=== PATIENT | female | born 1975 | race Two or more races ===

== ENCOUNTER 2019-10-27 21:02 | Emergency (ER) | payer SELFPAY ==
[~2019-10-27] VITALS: Ht 167.6 cm; Wt 91.8 kg
[2019-10-27 21:44] LABS: MICROSCOPIC NOT IND
[2019-10-27 21:53] LABS: CULTURE INDICATED? NO
--- NOTE | 2019-10-27 22:09 | NUR ---
PT C/O RUQ PAIN X1 WEEK. PAIN IS NOW CONSTANT 11/22. FAMILY AT BEDSIDE AT TRANSLATER. PT CONNECTED TO MONITORING. CALL LIGHT IN REACH.
[2019-10-27 22:45] LABS: BASOPHILS # (AUTO) 0.07 x10^3/uL (0-0.1); BASOPHILS % (AUTO) 1 % (0-1); EOSINOPHILS # (AUTO) 0.21 x10^3/uL (0-0.4); EOSINOPHILS % (AUTO) 2 % (1-7); LYMPHOCYTES # (AUTO) 4.01 x10^3/uL (1-3.4); LYMPHOCYTES % (AUTO) 40 % (22-44); MD NO; MEAN CORPUSCULAR HEMOGLOBIN 30.5 pg (27.0-34.8); MEAN CORPUSCULAR HGB CONC 33.9 g/dL (32.4-35.8); MEAN PLATELET VOLUME 10.4 fL (7.4-10.4); MONOCYTES # (AUTO) 0.59 x10^3/uL (0.2-0.8); MONOCYTES % (AUTO) 6 % (2-9); NEUTROPHILS # (AUTO) 5.15 x10^3/uL (1.8-6.8); NEUTROPHILS % (AUTO) 51 % (42-75); PLATELET COUNT 233 x10^3/uL (130-400); RED BLOOD COUNT 4.62 x10^6/uL (3.82-5.3); RED CELL DISTRIBUTION WIDTH 13.4 % (9.6-15.2)
[2019-10-27 22:50] LABS: ALANINE AMINOTRANSFERASE 40 U/L (12-78); ALBUMIN 3.7 g/dL (3.4-5.0); ANION GAP 5 mmol/L (5-15); CALCIUM 8.7 mg/dL (8.5-10.1); CHLORIDE 107 mmol/L (98-107); CREATININE 0.86 mg/dL (0.55-1.02)
[2019-10-27 22:54] LABS: ALKALINE PHOSPHATASE 95 U/L (45-117); BILIRUBIN,TOTAL 0.2 mg/dL (0.2-1.0); TOTAL PROTEIN 7.5 g/dL (6.4-8.2)
--- NOTE | 2019-10-27 22:58 | NUR ---
US AT BEDSIDE.
--- NOTE | 2019-10-27 23:24 | NUR ---
PT RESTING COMFORTABLY ON GURNEY. TUYET.
--- NOTE | 2019-10-27 23:24 | NUR ---
ALL RESULTS ARE BACK AT THIS TIME. CHART UP FOR RECHECK.
--- NOTE | 2019-10-27 23:44 | NUR ---
REPORT GIVEN TO FELIPE ARMAS.
--- NOTE | 2019-10-27 23:44 | NUR ---
REPORT RECEIVED FROM YONG WANG.
[2019-10-28 00:23] VITALS: BP 168/90
--- NOTE | 2019-10-28 00:23 | NUR ---
PT AMB TO BR WITH STEADY GAIT.
--- NOTE | 2019-10-28 00:23 | NUR ---
PIV EST ON L AC WITH NO COMPLICATIONS. PT TOLERATED WELL.
--- NOTE | 2019-10-28 00:42 | NUR ---
PT IN CT AT THIS TIME.
--- NOTE | 2019-10-28 00:45 | NUR ---
REPORT GIVEN TO MICHELLE WANG.
--- NOTE | 2019-10-28 00:48 | NUR ---
Report received from FELIPE Tapia. This RN to assume care.
[2019-10-28] MEDS ORDERED: OMNIPAQUE 350 MG/ML, 100ML BOTTLE ONE (00:53)
--- NOTE | 2019-10-28 02:18 | NUR ---
Patient/Caregiver given discharge instructions and they have confirmed that they understand the instructions. Patient ambulatory with steady gait.
== END 2019-10-28 02:20 | disposition home or self-care (01) ==
LOC: ED 23:13
DX: R10.11 Right upper quadrant pain (principal); R10.31 Right lower quadrant pain; F17.200 Nicotine dependence, unspecified, uncomplicated
CPT/HCPCS: 36415; 74177; 76700; 80053; 81003; 83690; 84703; 85025; 99285; Q9967